=== PATIENT | female | born 1970 | race Caucasian/White ===

== ENCOUNTER 2018-11-19 11:45 | Emergency (ER) | payer MEDICAID, SELFPAY ==
--- NOTE | 2018-11-19 11:52 | W.ED.GENAD ---
Discharge Plan Disposition Patient Disposition: HOME Condition: Stable Discharge Details Chief Complaint: RespSymp Clinical Impression: URI (upper respiratory infection) Primary Care Provider: Joyce Gill ED Provider: Ildefonso Love Home Meds and New Rx's Prescriptions: New benzonatate [Tessalon Perles] 100 mg capsule 100 mg PO TID PRN (Reason: cough) Qty: 30 RF: 0 Discharge Instructions Instructions: Upper Respiratory Infection (ED) Medical Decision Making 48 yo female who denies chronic medical problems comes in with complaint of cough, subjective fevers, myalgias and sinus pressure since . Denies rahes or recent travel. On exam she is speaking in full sentences, intermittent dry cough, pain with percussion over maxillary sinuses, clear lung sounds, normal oropharynx, midline uvula, no pain over hyoid or restricted neck movements or meningismus. I suspect the patient is having a uri, could be influenza but is over 48 hours of symptoms so not antiviral candidiate. No focal lung findings and appears well systemically without fever or hypoxia here so doubt pna at this time. Has had less than 10 days of sinus pressure so do not feel abx for sinusitis indicated. ADvised symptomatic care and f/u withpcp, return precautions given Differential Diagnosis uri, influenza, sinusitis HPI General Mode of arrival: ambulatory. Date/Time Provider Initiated Documentation: 11/19/18 11:52. Limitations to Documentation: no limitations. Information obtained by: patient. History of Present Illness 48 year old F presents to the emergency department with the chief complaint of cough and sinus pressure, described as moderate, with intensity rated at 5. Patient started experiencing this day(s) (3) and it has been constant. No relieving factors improve symptom(s), No exacerbating factors reported . Patient notes no other symptoms.. Patient did receive the following treatments prior to arrival, none Related Data Home Medications Medication Instructions Recorded Confirmed benzonatate [Tessalon Perles] 100 mg PO TID PRN #30 cap 11/19/18 Previous Rx's Medication Instructions Recorded benzonatate [Tessalon Perles] 100 mg PO TID PRN #30 cap 11/19/18 Allergies Allergy/AdvReac Type Severity Reaction Status Date / Time latex Allergy Intermediate Unverified 11/19/18 11:56 adhesive Allergy Mild RASH Unverified 11/19/18 11:56 metronidazole AdvReac Intermediate Unverified 11/19/18 11:56 Review of Systems Review of Systems All systems reviewed & are unremarkable except as noted in HPI and below Constitutional Denies weakness Cardiovascular Denies chest pain Gastrointestinal Denies abdominal pain, Denies nausea and Denies vomiting Integumentary/Breasts Denies rash Neurologic Denies weakness Psychiatric Denies depression PFSH Surgical History Cholecystectomy Repair of umbilical hernia Family History Mother Diabetes Thyroid disorder Father Personal history of malignant neoplasm Sister Thyroid disorder Brother Personal history of malignant neoplasm Social History Smoking/Tobacco Use Status: Never Exam Const General: no acute distress Orientation: alert HENMT Head: normal to inspection Ears: external ears normal General nose exam: external nose normal Mouth: moist mucous membranes Eyes General: appearance normal, both eyes and all related structures Neck Neck: normal visual inspection Resp Effort & Inspection: normal respiratory effort and able to speak in complete sentences Cardio Rate: regular rate Skin General skin exam: no rashes or lesions noted Neuro General: alert and oriented x3 Extrem General: normal to inspection Psych Mental Status: mental status grossly normal
[2018-11-19 11:54] VITALS: BP 125/76; PULSE 97; RESP 16; TEMP 37; O2SAT 96
--- NOTE | 2018-11-19 12:14 | ED.GENADUL_ITS ---
Discharge Plan Disposition Patient Disposition: HOME Condition: Stable Discharge Details Chief Complaint: RespSymp Clinical Impression: URI (upper respiratory infection) Primary Care Provider: Joyce Gill ED Provider: Ildefonso Love Home Meds and New Rx's Prescriptions: New benzonatate [Tessalon Perles] 100 mg capsule 100 mg PO TID PRN (Reason: cough) Qty: 30 RF: 0 Discharge Instructions Instructions: Upper Respiratory Infection (ED) Medical Decision Making 48 yo female who denies chronic medical problems comes in with complaint of cough, subjective fevers, myalgias and sinus pressure since . Denies rahes or recent travel. On exam she is speaking in full sentences, intermittent dry cough, pain with percussion over maxillary sinuses, clear lung sounds, normal oropharynx, midline uvula, no pain over hyoid or restricted neck movements or meningismus. I suspect the patient is having a uri, could be influenza but is over 48 hours of symptoms so not antiviral candidiate. No focal lung findings and appears well systemically without fever or hypoxia here so doubt pna at this time. Has had less than 10 days of sinus pressure so do not feel abx for sinusitis indicated. ADvised symptomatic care and f/u withpcp, return precautions given Differential Diagnosis uri, influenza, sinusitis HPI General Mode of arrival: ambulatory . Date/Time Provider Initiated Documentation: 11/19/18 11:52 . Limitations to Documentation: no limitations . Information obtained by: patient . History of Present Illness 48 year old F presents to the emergency department with the chief complaint of cough and sinus pressure, described as moderate, with intensity rated at 5. Patient started experiencing this day(s) (3) and it has been constant. No relieving factors improve symptom(s), No exacerbating factors reported . Patient notes no other symptoms.. Patient did receive the following treatments prior to arrival, none Related Data Home Medications Medication Instructions Recorded Confirmed benzonatate [Tessalon Perles] 100 mg PO TID PRN #30 cap 11/19/18 Previous Rx's Medication Instructions Recorded benzonatate [Tessalon Perles] 100 mg PO TID PRN #30 cap 11/19/18 Allergies Allergy/AdvReac Type Severity Reaction Status Date / Time latex Allergy Intermediate Unverified 11/19/18 11:56 adhesive Allergy Mild RASH Unverified 11/19/18 11:56 metronidazole AdvReac Intermediate Unverified 11/19/18 11:56 Review of Systems Review of Systems All systems reviewed & are unremarkable except as noted in HPI and below Constitutional Denies weakness Cardiovascular Denies chest pain Gastrointestinal Denies abdominal pain, Denies nausea and Denies vomiting Integumentary/Breasts Denies rash Neurologic Denies weakness Psychiatric Denies depression PFSH Surgical History Cholecystectomy Repair of umbilical hernia Family History Mother Diabetes Thyroid disorder Father Personal history of malignant neoplasm Sister Thyroid disorder Brother Personal history of malignant neoplasm Social History Smoking/Tobacco Use Status: Never Exam Const General: no acute distress Orientation: alert HENMT Head: normal to inspection Ears: external ears normal General nose exam: external nose normal Mouth: moist mucous membranes Eyes General: appearance normal, both eyes and all related structures Neck Neck: normal visual inspection Resp Effort & Inspection: normal respiratory effort and able to speak in complete sentences Cardio Rate: regular rate Skin General skin exam: no rashes or lesions noted Neuro General: alert and oriented x3 Extrem General: normal to inspection Psych Mental Status: mental status grossly normal
== END 2018-11-19 12:23 | disposition home or self-care (01) ==
PROVIDERS: Emergency Provider Emergency Medicine; PCP Family Medicine
DX: J06.9 Acute upper respiratory infection, unspecified (principal)
CPT/HCPCS: 99283

== ENCOUNTER 2019-01-19 02:14 | Outpatient (CLI) | payer MEDICAID, SELFPAY ==
[2019-01-19 10:20] LABS: ALT 28 U/L (12-78); AST 23 U/L (15-37); Albumin 3.7 g/dL (3.4-5.0); Alkaline Phosphatase 72 U/L (46-116); Anion Gap 10.9 mmol/L (3-11); BUN 12 mg/dL (7-18); Bilirubin, Total 0.6 mg/dL (0.2-1.0); CO2 28.1 mmol/L (21.0-32.0); CREATININE 0.62 mg/dL (0.55-1.02); Calcium 8.8 mg/dL (8.5-10.1); Chloride 103 mmol/L (98-107); Glucose 92 mg/dL (70-100); Potassium 4.1 mmol/L (3.5-5.1); Sodium 142 mmol/L (136-145); TSH (W/Ref FT4) 2.84 uIU/mL (0.358-3.74); Total Protein 6.8 g/dL (6.4-8.2)
[2019-01-19 14:30] LABS: Cholesterol 195 mg/dL (50-200); HDL Cholesterol 69 mg/dL (40-60); LDL CHOLESTEROL 100 mg/dL (<100); Triglyceride 125 mg/dL (30-150)
== END 2019-01-19 02:34 ==
DX: I10 Essential (primary) hypertension (principal); E03.9 Hypothyroidism, unspecified; F32.9 Major depressive disorder, single episode, unspecified; R63.8 Other symptoms and signs concerning food and fluid intake; G47.00 Insomnia, unspecified; Z00.00 Encounter for general adult medical examination without abnormal findings
CPT/HCPCS: 36415; 80053; 80061; 83721; 84443

== ENCOUNTER 2019-01-24 10:38 | Outpatient (REF) | payer MEDICAID, SELFPAY ==
--- NOTE | 2019-01-24 08:45 | PAPFT_PTH ---
PATIENT: Jaki Harrell LOC: [facility] U#:[id number] AGE/SX: 48/F ROOM: RE01/24/[address]: Carlotta Hunt APRN : 1970 BED: DIS: 01/24/2019 SPEC #: [id number] RECD: 01/24/19 13:06 STATUS: [place] #: [id number] CHRISTOPHER: 01/24/19 08:[address]: Carlotta Hunt DEPT: [facility] Cytology RECD BY: Camilla Lino Tissues: 1 - CX/ENDOCX FOR PAP SMEARS Procedures: PAP THIN PREP/UVM Screening HPV DNA PROBE Comments: [id number] (CHLAMYDIA/GC)
[2019-01-25 14:59] LABS: Chlamydia Result Negative; GC Result Negative; Specimen Description SEE COMMENTS
== END 2019-01-24 10:58 ==
LOC: LBN 10:38
DX: Z12.4 Encounter for screening for malignant neoplasm of cervix (principal); Z11.51 Encounter for screening for human papillomavirus (HPV); Z11.3 Encounter for screening for infections with a predominantly sexual mode of transmission
CPT/HCPCS: 87491; 87591; 88142; 87624

== ENCOUNTER 2021-09-09 13:42 | Emergency (ER) | payer BC, SELFPAY ==
[2021-09-09] VITALS (59 sets, daily range): BP systolic 85–145; BP diastolic 43–124; PULSE 46–144; RESP 5–30; TEMP 34.1–36.5; O2SAT 73–99
--- NOTE | 2021-09-09 13:30 | RT.EKG_ITS ---
APPROVED REPORT Exam: Resting ECG Reason for Exam: unresponsive Patient Location: E HR:62 bpm ECG Measurements Heart Rate 62 AXIS VA 129 P -19 QRSd 73 QRS 50 QT 388 T -80 QTc 394 Conclusion Sinus rhythm...normal P axis, V-rate 60- 99 Repol abnrm suggests ischemia, diffuse leads...ST-T neg, ant/lat/inf. Diffuse ST depressions in anterolateral leads. No STEMI. I have reviewed and interpreted ECG and agree with software generated interpretation.
--- NOTE | 2021-09-09 13:39 | W.ED.GENAD ---
Discharge Plan Disposition Patient Disposition: TRAVIS GARNER ([facility]) Condition: Critical Discharge Details Clinical Impression: Intraventricular hemorrhage, Acute respiratory failure, Shock, Pneumonitis Primary Care Provider: Carlotta Hunt ED Provider: Shimon Reardon Home Meds and New Rx's Prescriptions: No Action fexofenadine 60 mg tablet 60 mg PO BID Qty: 60 RF: 0 Adult Probiotic 3 billion cell capsule 3,000 mmu cells PO DAILY Qty: 90 RF: 6 metronidazole [Metrogel Vaginal] 0.75 % gel 1 appful vaginal DAILY 5 Days Qty: 70 RF: 1 miconazole nitrate [Quin Antifungal] 2 % cream 1 applic TP BID Qty: 42.5 RF: 1 metronidazole 0.75 % gel 1 applic TP DAILY Qty: 45 RF: 2 Discharge Data Discharge Date/Time-TO BE ENTERED AT DEPARTURE: 09/09/21 19:35 Medical Decision Making <Anika Ramirez DO - Last Filed: 09/10/21 08:32> 51-year-old female with a history of depression and no other known reported medical history presents for a syncopal episode with head injury now reported unresponsive with concern of run of V. tach in route per EMS. 1350 -- Patient unresponsive with sonorous respirations and bradypnea on arrival. Blood pressure 119/74. Heart rate 50s. Oxygen saturation mid 90s on 2 L nasal cannula. She did have a gag reflex with tongue blade initially. She was given an additional dose of Narcan without response. EKG notes a rate of 2, sinus with deep depressions in anterior lateral leads. [facility] cardiology paged stat for concern for potential cardiac etiology considering reported syncopal episode with potential runs of V. tach and now with ischemia on EKG. Will hold on ACS treatment due to report of head injury pending CT head. Her vitals remained within normal limits but she continued with sonorous respirations and decreased gag reflex. Patient intubated with RSI. Case discussed with [facility] cardiology they are not convinced that this is a cardiac etiology. No indication for a chest treatment at this time. Recommend posterior EKG, repeat EKG and bedside echo. When patient in radiology for CT imaging, the ventilator machine crashed. Patient was then given respirations with bagging and her oxygen saturation went decreased to as low as 78% and continued bagging which had increased to 95%.. A replacement ventilator machine obtained. Patient also had an additional episode of hypoxia O2 sats 70s in radiology, diminished breath sounds left chest, ET tube pulled from 25 to 22 at the lip. Improvement in left-sided breath sounds and oxygen saturation 100%. 1515 -- After return from radiology, patient noted to have a large intraventricular hemorrhage with a potential posterior cerebellar lesion. [facility] neurosurgery paged. Discussed with patient's mother who was made aware of patient status and results. Per discussion with [facility] neurosurgery, recommend head of bed elevation greater than 30 degrees, nicardipine drip if needed to keep systolic blood pressure less than 140, Keppra 1 g IV, and keep end-tidal CO2 between 33 and 35. [facility] does not have a cerebrovascular neurosurgeon in-house at this time and cannot accept pt. [facility] not flying due to weather. Discussed with [facility] neurosurgery Dr. Solis who has accepted patient for transfer. Accepting ED physician Dr. Salmon. Dr. Solis would like 1 g/kg mannitol, 500 cc of 3% hypertonic saline, keep PCO2 at 35, keep end-tidal CO2 at 30, continue IV fluids and start vasopressors to keep systolic blood pressure between 110-140. 1630 --Case endorsed to Dr. Reardon to continue to monitor while awaiting transfer. No local ground crew is available. [facility] still not flying due to weather. [facility] ground crew is coming for transfer. COVID PCR negative. 1645 --patient's BP has continued to remain hypotensive, systolic 80s to 90s. Central line to be placed by Dr. Reardon. Medical Records Medical records reviewed: Yes I reviewed the patient's medical records. Imaging Data Radiologic Study: Radiologist's impression: CT HEAD CERVICAL SPINE WO CLINICAL HISTORY: head injury s/p syncopal episode. TECHNIQUE: Imaging Protocol: Axial computed tomography images with coronal and sagittal reformatted images were created and reviewed COMPARISON: CT CT CHEST/ABD/PEL WO from 09/09/2021 FINDINGS: BRAIN: There are no skull fractures nor fluid in the visualized paranasal sinuses. There is no fluid in the middle ear cavities. No evidence of basal skull fracture. There is acute hyperdense blood cast filling the entire ventricular system including the 4th ventricle and 3rd ventricle and lateral ventricles. There is symmetrical dilatation of the temporal horns of both lateral ventricles as well as dilatation of the 3rd ventricle to a diameter of 1.5 cm. There is no shift. The 4th ventricle and foramina of Luschka are also filled with blood. Posterior to the 4th ventricle a is area of extra-axial blood in the region of the vermis and dentate nuclei, possibly indicating presence of a mass at this level which has hemorrhage into the 4th ventricle. There is no intra-axial blood above the tentorium. CERVICAL SPINE: There is no evidence of fracture nor listhesis. No significant prevertebral soft tissue swelling. There is no significant facet joint malalignment. No significant osseous lesions evident. Patient is intubated. There are infiltrates in the lung apices. IMPRESSION: Large amount of acute appearing hyperdense intraventricular blood filling the entire ventricular system in the brain with enlargement of the ventricular system as described above (no left right shift). There is a possible culprit hemorrhagic lesion in the vermis of the cerebellum just behind the 4th ventricle. No evidence of cervical spine fracture, malalignment, nor acute compromise of the cervical spinal canal. Infiltrates noted in the visualized lung apices. Patient is intubated. Findings discussed with ER physician immediately following completion of the study. CT CHEST/ABD/PEL WO CLINICAL HISTORY: s/p syncopal episode, r/o PE. TECHNIQUE: Imaging Protocol: Axial computed tomography images with coronal and sagittal reformatted images were created and reviewed CONTRAST MATERIAL: Intravenous: none Oral: None COMPARISON: No exams were available for comparison FINDINGS: CHEST: The patient is intubated but the distal tip of the endotracheal tube recurred needs to be retracted. It is presently in the right mainstem bronchus (called to ER physician). LUNGS: There are patchy nodular and confluent infiltrates in both upper lobes sub apical regions and there is more confluent relatively symmetrical infiltrate involving the superior segments of both lower lobes. Extending down towards the basal segments of both lower lobes but without prominent involvement of the basal segments and there is relative sparing of the right middle lobe and lingular segment of the left lung. There are no pleural effusions. No obstructing findings in the trachea and mainstem bronchi. No pneumothorax. No significant bullae. MEDIASTINUM: No evidence of mediastinal hematoma. Some air is seen in the innominate vein behind the sternum which is most probably related to intravenous. Some air is also seen in both subclavian veins. No air seen within the SVC nor within the heart. No air in the IVC. No significant incidental hilar nor mediastinal adenopathy. No axillary adenopathy. CARDIAC: Heart size is normal. There is no pericardial effusion.Caliber of the thoracic aorta is within normal limits. OSSEOUS: No significant osseous lesions.No fractures.. ABDOMEN: There is no ascites. LIVER: No evidence of hepatic laceration. No Zhanna hepatic fluid . GALLBLADDER/BILIARY: Gallbladder surgically absent. CBD is not dilated. PANCREAS: No evidence of obvious pancreatic mass nor dilatation of the pancreatic duct. SPLEEN: Spleen size is normal. There is no obvious splenic laceration. There is no perisplenic fluid. ADRENALS: There are no significant adrenal masses. KIDNEYS: No evidence of renal laceration or subcapsular hematoma. No focal renal findings. No calculi. No hydronephrosis nor hydroureter. No abnormality in the nondistended urinary bladder.. ABDOMINAL AORTA: Not enlarged. No para-aortic fluid collection. No para-aortic adenopathy. LYMPH NODES: There is no retroperitoneal nor para-aortic adenopathy. ABDOMINAL WALL/GI: There is an anterior abdominal wall midline supraumbilical hernia which contains fat and no bowel loops. Hernia sac measures 4 x 4 cm. No evidence of mesenteric nor bowel wall hematoma. No obvious edematous/ischemic appearing bowel loops. PELVIS: LYMPH NODES: There is no intrapelvic nor inguinal adenopathy. GI: No evidence of appendicitis.No evidence of sigmoid diverticulitis. URINARY BLADDER: Urinary bladder is not distended. No mass nor calculi therein. REPRODUCTIVE: Uterus is retro Humberto. Upper normal size. No abnormal adnexal masses. No free fluid in the cul-de-sac. OSSEOUS: No significant osseous lesions. IMPRESSION: 1. No significant trauma sequelae, realizing limitations of a non infused CT study. 2. Extensive bilateral pulmonary infiltrates, either related to aspiration, pneumonia,/combination thereof. Recommend Covid- 19 testing. No pneumothorax. No fractures. No pleural effusions. 3. Incidentally noted is an anterior abdominal wall supraumbilical fat only containing hernia sac measuring 4 x 4 cm. No bowel loops therein. No bowel obstruction. 4. No fractures nor incidental concerning osseous lesions evident. 5. Endotracheal tube tip is in the right mainstem bronchus and needs to be repositioned. This was called by myself to the emergency room physician. CT THORACIC LUMBAR SPINE REC CLINICAL HISTORY: s/p fall, r/o fx TECHNIQUE: COMPARISON: No exams were available for comparison FINDINGS: THORACIC SPINAL COLUMN:. No fractures. No malalignment. No acute compromise the spinal canal. LUMBOSACRAL SPINAL COLUMN: No fractures. No malalignment. No acute compromise of the spinal canal. IMPRESSION: No fractures in the thoracolumbar spine. No facet joint malalignment. Lab Data Lab results reviewed: Yes I reviewed the patient's lab results. Labs: Laboratory Tests Range/Units 09/09/21 09/09/21 09/09/21 13:55 13:55 13:55 WBC (4.4-10.8) 10^3/uL 14.46 H RBC (3.93-5.22) 10^6/uL 4.97 Hgb (11.2-15.7) g/dL 14.3 Hct (36.0-46.0) % 44.1 MCV (80-95) fL 88.7 MCH (27.0-33.0) pg 28.8 MCHC (32.0-36.0) % 32.4 RDW (11.7-14.6) % 12.6 Plt Count (130-400) 10^3/uL 275 MPV (8.0-11.0) fL 10.0 Immature Gran % 0.4 Neutrophils % 51.8 Lymphocytes % 35.1 Monocytes % 7.9 Eosinophils % 4.0 Basophils % 0.8 Nucleated RBC % % 0 Absolute Neutrophils (1.2-6.7) 10^3/uL 7.49 H Absolute Lymphocytes (1.2-3.4) 10^3/uL 5.08 H Absolute Monocytes (0.1-0.8) 10^3/uL 1.14 H Absolute Eosinophils (0.0-0.7) 10^3/uL 0.58 Absolute Basophils (0.0-0.2) 10^3/uL 0.12 RBC Morphology Normal PT (9.3-11.0) sec 9.9 INR (0.9-1.1) 1.0 APTT (21.0-27.5) sec 20.7 L ABG Sample Site ABG pH (7.35-7.45) ABG pCO2 (35-45) mmHg ABG pO2 (80-105) mmHg ABG HCO3 (22-26) mmol/L ABG Total CO2 (23-27) mmol/L ABG O2 Saturation (95-98) % ABG Base Excess (-2-3) mmol/L Oxygen Liter Flow L FiO2 % Sodium (136-145) mmol/L 141 Potassium (3.5-5.1) mmol/L 2.8 L* Chloride (98-107) mmol/L 103 Carbon Dioxide (21.0-32.0) mmol/L 24.6 Anion Gap (3-11) mmol/L 13.4 H BUN (7-18) mg/dL 18 Creatinine (0.55-1.02) mg/dL 0.7 Estimated GFR/1.73 m2 (mL/min/1.73m2) >= 60.00 Glucose (74-106) mg/dL 206 H Calcium (8.5-10.1) mg/dL 8.9 Magnesium (1.8-2.4) mg/dL 2.1 Total Bilirubin (0.2-1.0) mg/dL 0.6 AST (15-37) U/L 22 ALT (14-59) U/L 25 Alkaline Phosphatase (46-116) U/L 63 Troponin I (<0.06) ng/mL < 0.05 Total Protein (6.4-8.2) g/dL 7.6 Albumin (3.4-5.0) g/dL 4.1 Serum HCG, Qual Ethyl Alcohol (<10) mg/dL COVID-19 Source Range/Units 09/09/21 09/09/21 09/09/21 13:55 13:55 15:00 WBC (4.4-10.8) 10^3/uL RBC (3.93-5.22) 10^6/uL Hgb (11.2-15.7) g/dL Hct (36.0-46.0) % MCV (80-95) fL MCH (27.0-33.0) pg MCHC (32.0-36.0) % RDW (11.7-14.6) % Plt Count (130-400) 10^3/uL MPV (8.0-11.0) fL Immature Gran % Neutrophils % Lymphocytes % Monocytes % Eosinophils % Basophils % Nucleated RBC % % Absolute Neutrophils (1.2-6.7) 10^3/uL Absolute Lymphocytes (1.2-3.4) 10^3/uL Absolute Monocytes (0.1-0.8) 10^3/uL Absolute Eosinophils (0.0-0.7) 10^3/uL Absolute Basophils (0.0-0.2) 10^3/uL RBC Morphology PT (9.3-11.0) sec INR (0.9-1.1) APTT (21.0-27.5) sec ABG Sample Site ABG pH (7.35-7.45) ABG pCO2 (35-45) mmHg ABG pO2 (80-105) mmHg ABG HCO3 (22-26) mmol/L ABG Total CO2 (23-27) mmol/L ABG O2 Saturation (95-98) % ABG Base Excess (-2-3) mmol/L Oxygen Liter Flow L FiO2 % Sodium (136-145) mmol/L Potassium (3.5-5.1) mmol/L Chloride (98-107) mmol/L Carbon Dioxide (21.0-32.0) mmol/L Anion Gap (3-11) mmol/L BUN (7-18) mg/dL Creatinine (0.55-1.02) mg/dL Estimated GFR/1.73 m2 (mL/min/1.73m2) Glucose (74-106) mg/dL Calcium (8.5-10.1) mg/dL Magnesium (1.8-2.4) mg/dL Total Bilirubin (0.2-1.0) mg/dL AST (15-37) U/L ALT (14-59) U/L Alkaline Phosphatase (46-116) U/L Troponin I (<0.06) ng/mL Total Protein (6.4-8.2) g/dL Albumin (3.4-5.0) g/dL Serum HCG, Qual Negative Ethyl Alcohol (<10) mg/dL < 3.0 COVID-19 Source Nasal/Nares Range/Units 09/09/21 16:04 WBC (4.4-10.8) 10^3/uL RBC (3.93-5.22) 10^6/uL Hgb (11.2-15.7) g/dL Hct (36.0-46.0) % MCV (80-95) fL MCH (27.0-33.0) pg MCHC (32.0-36.0) % RDW (11.7-14.6) % Plt Count (130-400) 10^3/uL MPV (8.0-11.0) fL Immature Gran % Neutrophils % Lymphocytes % Monocytes % Eosinophils % Basophils % Nucleated RBC % % Absolute Neutrophils (1.2-6.7) 10^3/uL Absolute Lymphocytes (1.2-3.4) 10^3/uL Absolute Monocytes (0.1-0.8) 10^3/uL Absolute Eosinophils (0.0-0.7) 10^3/uL Absolute Basophils (0.0-0.2) 10^3/uL RBC Morphology PT (9.3-11.0) sec INR (0.9-1.1) APTT (21.0-27.5) sec ABG Sample Site Left Radial ABG pH (7.35-7.45) 7.28 L ABG pCO2 (35-45) mmHg 50 H ABG pO2 (80-105) mmHg 85 ABG HCO3 (22-26) mmol/L 24 ABG Total CO2 (23-27) mmol/L 22 L ABG O2 Saturation (95-98) % 96 ABG Base Excess (-2-3) mmol/L -3 L Oxygen Liter Flow L CMV/VT340/R15/P5 FiO2 % 100 Sodium (136-145) mmol/L Potassium (3.5-5.1) mmol/L Chloride (98-107) mmol/L Carbon Dioxide (21.0-32.0) mmol/L Anion Gap (3-11) mmol/L BUN (7-18) mg/dL Creatinine (0.55-1.02) mg/dL Estimated GFR/1.73 m2 (mL/min/1.73m2) Glucose (74-106) mg/dL Calcium (8.5-10.1) mg/dL Magnesium (1.8-2.4) mg/dL Total Bilirubin (0.2-1.0) mg/dL AST (15-37) U/L ALT (14-59) U/L Alkaline Phosphatase (46-116) U/L Troponin I (<0.06) ng/mL Total Protein (6.4-8.2) g/dL Albumin (3.4-5.0) g/dL Serum HCG, Qual Ethyl Alcohol (<10) mg/dL COVID-19 Source ECG Data Attestation: I personally reviewed and interpreted this ECG (s) as follows: Interpretation: Rate of 62, sinus, [address] depressions in V3, V4. [address] depressions in V5 and V6. [address] depression in leads III, aVF. No acute ST elevation. [place] 129. QRS 73. QTc 394 <Shimon Reardon, DO - Last Filed: 09/09/21 21:25> Patient was signed out to me by my colleague Dr. Anika Ramirez. Please refer to her HPI, physical exam, assessment and plan. At time of signout patient had been accepted for transfer to the [facility]. Unfortunately it would take about 1 hour and 45 minutes for the transfer team to arrive. During the patient's time here she began to notably decline, patient needed pressor support. The decision was made to place a right IJ central line. Central line was placed without complication. Following this the patient required continued titration of pressors, and sedatives to find an appropriate balance for blood pressure, sedation, and appropriate state post intubation. Patient eventually maxed out on Levophed drip. Then towards the last 15 to 20 minutes of the patient's stay here in the emergency department her oxygenation status began to decline. Repeat exam performed by myself demonstrated notable crackles throughout. No deviation of the trachea, no clinical evidence of pneumothorax. Repeat portable chest x-ray shows no evidence of pneumo, but does show continued notable consolidation and interstitial edema. In spite of being maxed out on Levophed, her pressure remained somewhat low. With the help of laxatives from respiratory therapy, we continued to maximize PEEP, we had to diminished tidal volumes secondary to this, and FiO2 remained at 100% for administrated oxygen. Despite this the patient still did not have significant improvement of her oxygenation status in spite of multiple suctioning attempts. There is a small amount of pink frothy noted on one attempt to suction. Eventually through management to the I/E ratio as we were able to get the patient's oxygen saturations up to the high 80s, low 90s. However with the patient's notable poor prognostic outlook, we did contact [facility] discussed the case with neurosurgery team. Out of concern that the patient may not survive the transfer, I did have the long and very radha conversation with the family regarding the options of keeping the patient here to be close to family during her last moments, or the potential attempt for transfer with a high risk of continued rapid demise, and I also made clear that there was a low likelihood that the patient would be able to recover to anywhere near her previous neurologic state. Understanding this, and weighing the risks and benefits, family felt that it was best to pursue all options at this time, and to continue to request transfer. Patient will be transferred via the [facility] critical care team. I have extensively reviewed the treatment plan with the patient. I have addressed all patient concerns at this time. I have also discussed the plan with the admitting physician and they agree with the current assessment and plan and have agreed to assume responsibility for the patient. All parties demonstrate verbal understanding and agreement with our assessment and plan at this time. The documentation in this chart was dictated using [employer] dictation software. Please excuse any dictation errors. FINDINGS: Tubes, catheters and devices: The endotracheal tube does not appear significantly changed in position. There has been interval placement of a gastric tube with the tip below the diaphragm and out of the field of view of this radiograph. There has been interval placement of a right IJ central venous catheter with the tip at the level of the SVC/RA junction. Lungs: Extensive airspace consolidation is again noted and appears unchanged. Pleural spaces: Unremarkable. No pleural effusion. No pneumothorax. Heart/Mediastinum: Unremarkable. No cardiomegaly. Bones/joints: Unremarkable. IMPRESSION: Interval placement of a central venous catheter and a gastric tube. Thank you for allowing us to participate in the care of your patient. Dictated and Authenticated by: Brayan Lynn MD 09/09/2021 5:35 PM Eastern Time ([place] & [place]) HPI <Anika Ramirez DO - Last Filed: 09/10/21 08:32> General Mode of arrival: EMS. Date/Time Provider Initiated Documentation: 09/09/21 13:58. Limitations to Documentation: altered mental status. Information obtained by: EMS. HPI Narrative: Patient is a 51-year-old female with a history of depression and no other known past medical history presents from her workplace for a reported syncopal episode with head injury now noted to be unresponsive. 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 They stated she initially was confused but upon their arrival was unresponsive but breathing. She had to be lifted onto a stretcher. EMS notes that initially her rhythm appears sinus but then she appeared to have a run of V. tach. She was given a dose of Narcan without response. There is no report of other trauma been head injury. There is no known reported drug use. Related Data Home Medications Medication Instructions Recorded Confirmed lactobacillus combination no.8 3 3,000 mmu cells PO DAILY #90 cap 03/21/19 03/21/19 billion cell capsule miconazole nitrate 2 % topical 1 applic TP BID #42.5 gm 09/28/19 cream fexofenadine 60 mg tablet 60 mg PO BID #60 tab 02/02/20 02/02/20 metronidazole 0.75 % topical gel 1 applic TP DAILY #45 gm 12/23/20 metronidazole 0.75 % vaginal gel 1 appful VAGINAL DAILY 5 Days #70 g 04/13/21 04/13/21 Previous Rx's Medication Instructions Recorded lactobacillus combination no.8 3 3,000 mmu cells PO DAILY #90 cap 03/21/19 billion cell capsule miconazole nitrate 2 % topical 1 applic TP BID #42.5 gm 09/28/19 cream fexofenadine 60 mg tablet 60 mg PO BID #60 tab 02/02/20 metronidazole 0.75 % topical gel 1 applic TP DAILY #45 gm 12/23/20 metronidazole 0.75 % vaginal gel 1 appful VAGINAL DAILY 5 Days #70 g 04/13/21 Allergies Allergy/AdvReac Type Severity Reaction Status Date / Time latex Allergy Intermediate Verified 04/13/21 14:54 adhesive Allergy Mild RASH Verified 04/13/21 14:54 metronidazole AdvReac Mild could not Verified 04/13/21 14:54 swallow General JULES: 3 Review of Systems <Anika Ramirez DO - Last Filed: 09/10/21 08:32> Unobtainable due to mental status [facility] <Anika Ramirez DO - Last Filed: 09/10/21 08:32> Medical History (Updated 09/09/21 @ 21:24 by Shimon Reardon DO) Acne Bacterial vaginitis Depression Increased body mass index (BMI) Perineal rash Possible exposure to STD Urinary, incontinence, stress female Surgical History Cholecystectomy Repair of umbilical hernia Family History Mother Diabetes Thyroid disorder Father , 43 Personal history of malignant neoplasm Sister Thyroid disorder Brother , 39 Personal history of malignant neoplasm Maternal Grandfather No problems noted. Paternal Grandfather No problems noted. Maternal Grandmother No problems noted. Paternal Grandmother No problems noted. Brother No problems noted. Son No problems noted. Daughter No problems noted. Social History Smoking/Tobacco Use Status: Never Smoking risk assessment performed?: Yes Alcohol Intake: current Alcohol Intake frequency: a few times a week Drug use: Never Caregiver/Support person: No Household members: family and children Housing: apartment Pets and animals: Yes Pets and animals: cat(s) Sexually active: No Do you think of yourself as: straight/heterosexual Current gender identity: female What is your relationship status?: Panel score (0-1 are the most socially isolated patients): 0 What type of physical activity do you participate in: none Delfina/Oriental Orthodox: Yarsanism Special delfina needs: No Seatbelt use: always Drive intox or ride w/intox motor vehicle escort driver: No Do you feel safe in your relationship?: Yes Exam <Anika Ramirez DO - Last Filed: 09/10/21 08:32> Const Nutritional Appearance: obese centrally obese Orientation: obtunded HENMT Head: normal to inspection Ears: TM's normal bilaterally Mouth: oral mucosae normal Eyes General: appearance normal, both eyes and all related structures Eyelids: eyelids normal Pupils: pupil size bilaterally 2 Neck Neck: normal visual inspection Lymphatic: no lymphadenopathy noted Chest Chest: normal inspection of the chest Resp Effort & Inspection: decreased respiratory effort (sonorous respirations) Auscultation: clear to auscultation bilaterally Cardio Rate: bradycardic Rhythm: regular rhythm GI Inspection: normal to inspection, no abdominal wall ecchymosis and obesity Palpation: soft, not firm, no guarding, no hepatosplenomegaly, no masses and nontender Auscultation: hypoactive bowel sounds Skin General skin exam: no rashes or lesions noted Neuro General: patient obtunded Extrem General: normal to inspection Psych Appearance: grossly normal Procedures <Anika Ramirez DO - Last Filed: 09/10/21 08:32> Intubation Time out performed: Yes sedative: Etomidate Mg Given: 20 paralytic: Succinylcholine Mg Given: 80 Laryngoscope: other (glidescope) ET Tube Size: 7.5 Tube Secured Depth (cm): 25 Tube Secured Location: lips Tube Placement Confirmation: visualized tube passing through cords and equal breath sounds bilaterally Patient Tolerated Procedure: other (O2 saturations decreased to the 60s just prior to RSI, pt bagged with minimal improvement, NC preoxygenation; sats increased to near 100% after intubation) Intubation Complications: none <Shimon Reardon DO - Last Filed: 09/09/21 21:25> Central Line Placement Right IJ: Time Out Performed: Yes Patient Placed on Monitor/Pulse Ox: Yes MD Prep: mask, gown and gloves Central Line Prep: Chlorhexidine scrub Ultrasound Used for Placement: Yes Central Line Lumen Inserted: triple Post Procedure: good blood return, all ports aspirated, flushed, capped and sutured in place with 3-0 nylon Post Procedure X-Ray: tip of catheter in good position Patient Tolerated Procedure: well Complications: none Critical Care Time <Anika Ramirez DO - Last Filed: 09/10/21 08:32> Critical Care Time Critical Care Time: Yes Total Critical Care Time: 120 Attestation: I spent 120 minutes of critical care time with this patient. This does not include time spent on separately reported billable procedures. <Shimon Reardon, DO - Last Filed: 09/09/21 21:25> Critical Care Time Critical Care Time: Yes Total Critical Care Time: 100 Attestation: Upon my evaluation, this patient had a high probability of imminent or life-threatening deterioration, which required my direct attention, intervention, and personal management. I have personally provided 100 minutes of critical care time exclusive of time spent on separately billable procedures. Time includes review of laboratory data, radiology results, discussion with consultants, and monitoring for potential decompensation. Interventions were performed as documented. Sign Out <Anika Ramirez DO - Last Filed: 09/10/21 08:32> Sign Out Data: Sign Out Comment: Patient accepted for transfer to [facility]. Ground crew from [facility] will be transporting patient. Continue to monitor to keep systolic BP between 110 and 140. Keep end-tidal CO2 at 30. Keep head of bed greater than 30 degrees. Last updated by Anika Ramirez DO at 09/09/21 16:51
--- NOTE | 2021-09-09 14:00 | DI.CT_ITS ---
Exam(s) CT HEAD CERVICAL SPINE WO EXAM: CT HEAD CERVICAL SPINE WO CLINICAL HISTORY: head injury s/p syncopal episode. TECHNIQUE: Imaging Protocol: Axial computed tomography images with coronal and sagittal reformatted images were created and reviewed COMPARISON: CT CT CHEST/ABD/PEL WO from 09/09/2021 FINDINGS: BRAIN: There are no skull fractures nor fluid in the visualized paranasal sinuses. There is no fluid in the middle ear cavities. No evidence of basal skull fracture. There is acute hyperdense blood cast filling the entire ventricular system including the 4th ventricl e and 3rd ventricle and lateral ventricles. There is symmetrical dilatation of the temporal horns of both lateral ventricles as well as dilatation of the 3rd ventricle to a diameter of 1.5 cm. There i s no shift. The 4th ventricle and foramina of Luschka are also filled with blood. Posterior to the 4th ventricle a is area of extra-axial blood in the region of the vermis and dentate nuclei, possibly indicating presence of a mass at this level which has hemorrhage into the 4th ventricle. There is no intra-axial blood above the tentorium. CERVICAL SPINE: There is no evidence of fracture nor listhesis. No significant prevertebral soft tissue swelling. There is no significant facet joint malalignment. No significant osseous lesions evident. Patient is intubated. There are infiltrates in the lung apices. IMPRESSION: Large amount of acute appearing hyperdense intraventricular blood filling the entire ventricular syst em in the brain with enlargement of the ventricular system as described above (no left right shift). There is a possible culprit hemorrhagic lesion in the vermis of the cerebellum just behind the 4th v entricle. No evidence of cervical spine fracture, malalignment, nor acute compromise of the cervical spinal can al. Infiltrates noted in the visualized lung apices. Patient is intubated. Findings discussed with ER physician immediately following completion of the study. RADIATION DOSE DELIVERED: 1,239.04mGy.cm Total DLP DATA REPOSITORY: All CT scans at this facility are submitted to the National Radiology Data Registry (NRDR) Dose Index Registry (DIR) with the [employer] (A[employer]). RADIATION OPTIMIZATION: All CT scans at this facility use at least one of these dose optimization te chniques: automated exposure control; mA and/or kV adjustment per patient size (includes targeted exa ms where dose is matched to clinical indication); or iterative reconstruction.
[2021-09-09] MEDS: Succinylcholine 200 MG/10 ML VIAL 80 MG IVP (14:04)
[2021-09-09] MEDS: Etomidate 20 MG/10 ML VIAL IVP (14:04)
[2021-09-09 14:08] LABS: Abs Immature Grans 0.06 10^3/uL (0.0-0.06); Absolute Basophil Count 0.12 10^3/uL (0.0-0.2); Absolute Eosinophil Count 0.58 10^3/uL (0.0-0.7); Absolute Monocyte Count 1.14 10^3/uL (0.1-0.8); Absolute Neutrophil Count 7.49 10^3/uL (1.2-6.7); Basophils % 0.8; HCT 44.1 % (36.0-46.0); HGB 14.3 g/dL (11.2-15.7); Immature Grans % 0.4; Lymphocytes % 35.1; MCH 28.8 pg (27.0-33.0); MCHC 32.4 % (32.0-36.0); MCV 88.7 fL (80-95); Monocytes % 7.9; Neutrophils % 51.8; Nucleated RBC 0 %; Platelet Count 275 10^3/uL (130-400); RBC 4.97 10^6/uL (3.93-5.22); RDW 12.6 % (11.7-14.6); RDW-SD 41.1 fL; WBC 14.46 10^3/uL (4.4-10.8)
[2021-09-09 14:09] LABS: Absolute Lymphocyte Count 5.08 10^3/uL (1.2-3.4)
[2021-09-09] MEDS: Propofol 200 MG/20 ML VIAL 50 MG IVP (14:09)
--- NOTE | 2021-09-09 14:11 | DI.CT_ITS ---
Exam(s) CT THORACIC LUMBAR SPINE REC EXAM: CT THORACIC LUMBAR SPINE REC CLINICAL HISTORY: s/p fall, r/o fx TECHNIQUE: COMPARISON: No exams were available for comparison FINDINGS: THORACIC SPINAL COLUMN:. No fractures. No malalignment. No acute compromise the spinal canal. LUMBOSACRAL SPINAL COLUMN: No fractures. No malalignment. No acute compromise of the spinal canal. IMPRESSION: No fractures in the thoracolumbar spine. No facet joint malalignment.
--- NOTE | 2021-09-09 14:11 | DI.CT_ITS ---
Exam(s) CT CHEST/ABD/PEL WO EXAM: CT CHEST/ABD/PEL WO CLINICAL HISTORY: s/p syncopal episode, r/o PE. TECHNIQUE: Imaging Protocol: Axial computed tomography images with coronal and sagittal reformatted images were created and reviewed CONTRAST MATERIAL: Intravenous: none Oral: None COMPARISON: No exams were available for comparison FINDINGS: CHEST: The patient is intubated but the distal tip of the endotracheal tube recurred needs to be retracted. It is presently in the right mainstem bronchus (called to ER physician). LUNGS: There are patchy nodular and confluent infiltrates in both upper lobes sub apical regions and there is more confluent relatively symmetrical infiltrate involving the superior segments of both low er lobes. Extending down towards the basal segments of both lower lobes but without prominent involv ement of the basal segments and there is relative sparing of the right middle lobe and lingular segme nt of the left lung. There are no pleural effusions. No obstructing findings in the trachea and andres nstem bronchi. No pneumothorax. No significant bullae. MEDIASTINUM: No evidence of mediastinal hematoma. Some air is seen in the innominate vein behind the sternum which is most probably related to intravenous. Some air is also seen in both subclavian vei ns. No air seen within the SVC nor within the heart. No air in the IVC. No significant incidental hilar nor mediastinal adenopathy. No axillary adenopathy. CARDIAC: Heart size is normal. There is no pericardial effusion.Caliber of the thoracic aorta is wit hin normal limits. OSSEOUS: No significant osseous lesions.No fractures.. ABDOMEN: There is no ascites. LIVER: No evidence of hepatic laceration. No Zhanna hepatic fluid . GALLBLADDER/BILIARY: Gallbladder surgically absent. CBD is not dilated. PANCREAS: No evidence of obvious pancreatic mass nor dilatation of the pancreatic duct. SPLEEN: Spleen size is normal. There is no obvious splenic laceration. There is no perisplenic flui d. ADRENALS: There are no significant adrenal masses. KIDNEYS: No evidence of renal laceration or subcapsular hematoma. No focal renal findings. No calcu li. No hydronephrosis nor hydroureter. No abnormality in the nondistended urinary bladder.. ABDOMINAL AORTA: Not enlarged. No para-aortic fluid collection. No para-aortic adenopathy. LYMPH NODES: There is no retroperitoneal nor para-aortic adenopathy. ABDOMINAL WALL/GI: There is an anterior abdominal wall midline supraumbilical hernia which contains f at and no bowel loops. Hernia sac measures 4 x 4 cm. No evidence of mesenteric nor bowel wall hematoma. No obvious edematous/ischemic appearing bowel loo ps. PELVIS: LYMPH NODES: There is no intrapelvic nor inguinal adenopathy. GI: No evidence of appendicitis.No evidence of sigmoid diverticulitis. URINARY BLADDER: Urinary bladder is not distended. No mass nor calculi therein. REPRODUCTIVE: Uterus is retro Humberto. Upper normal size. No abnormal adnexal masses. No free fluid in the cul-de-sac. OSSEOUS: No significant osseous lesions. IMPRESSION: 1. No significant trauma sequelae, realizing limitations of a non infused CT study. 2. Extensive bilateral pulmonary infiltrates, either related to aspiration, pneumonia,/combination th ereof. Recommend Covid- 19 testing. No pneumothorax. No fractures. No pleural effusions. 3. Incidentally noted is an anterior abdominal wall supraumbilical fat only containing hernia sac jairo suring 4 x 4 cm. No bowel loops therein. No bowel obstruction. 4. No fractures nor incidental concerning osseous lesions evident. 5. Endotracheal tube tip is in the right mainstem bronchus and needs to be repositioned. This was c alled by myself to the emergency room physician. RADIATION DOSE DELIVERED: 1388.14 mGy.cm Total DLP DATA REPOSITORY: All CT scans at this facility are submitted to the National Radiology Data Registry (NRDR) Dose Index Registry (DIR) with the [employer] (ACR). RADIATION OPTIMIZATION: All CT scans at this facility use at least one of these dose optimization te chniques: automated exposure control; mA and/or kV adjustment per patient size (includes targeted exa ms where dose is matched to clinical indication); or iterative reconstruction.
[2021-09-09] MEDS: PROPOFOL 500 MG/50 ML BTL 25.26 MG IVPB (14:13)
[2021-09-09] MEDS: Normal Saline 1,000 ML 1000 ML IV (14:15)
[2021-09-09 14:26] LABS: Diff Comment Diff Reviewed; PTT Activated 20.7 sec (21.0-27.5); Prothrombin Time 9.9 sec (9.3-11.0); RBC Morphology Normal
[2021-09-09 14:27] LABS: ALT 25 U/L (14-59); AST 22 U/L (15-37); Albumin 4.1 g/dL (3.4-5.0); Alkaline Phosphatase 63 U/L (46-116); Anion Gap 13.4 mmol/L (3-11); BUN 18 mg/dL (7-18); Bilirubin, Total 0.6 mg/dL (0.2-1.0); CO2 24.6 mmol/L (21.0-32.0); CREATININE 0.7 mg/dL (0.55-1.02); Calcium 8.9 mg/dL (8.5-10.1); Chloride 103 mmol/L (98-107); Glucose 206 mg/dL (74-106); Magnesium 2.1 mg/dL (1.8-2.4); Sodium 141 mmol/L (136-145); Total Protein 7.6 g/dL (6.4-8.2)
[2021-09-09 14:34] LABS: Potassium 2.8 mmol/L (3.5-5.1); Troponin I < 0.05 ng/mL (<0.06)
[2021-09-09 14:45] LABS: HCG Qual (Serum) Negative
[2021-09-09 14:57] LABS: ETHANOL BLOOD < 3.0 mg/dL (<10)
[2021-09-09 15:08] LABS: Source Nasal/Nares
--- NOTE | 2021-09-09 15:15 | DI.RAD_ITS ---
Exam(s) XR PORTABLE CHEST AP EXAM: XR PORTABLE CHEST AP CLINICAL HISTORY: assess ETT. TECHNIQUE: 2D digital imaging was performed. COMPARISON: No exams were available for comparison FINDINGS: Patient is intubated. Distal tip of the endotracheal tube is in good position above the guerrero at th e clavicular level. The mediastinum is not widened. There are cardiac pads in place. Heart size is normal. Symmetrical bat wing-type infiltrates are noted in the upper lobes, superior segment lower lobes and extending down towards the basal segments of both lower lobes, as seen on chest CT scan earlier same date. There are no obvious pleural effusions. There is no pneumothorax. No fractures evident. IMPRESSION: DATA REPOSITORY: RADIATION DOSE DELIVERED: All CT scans at this facility use at least one of these dose optimization techniques: automated exposure control; mA and/or kV adjustment per patient size (includes targeted e xams where dose is matched to clinical indication); or iterative reconstruction.
[2021-09-09] MEDS: levETIRAcetam 1,000 MG in Normal Saline 100 ML 400 MG IVPB (15:47)
[2021-09-09 16:05] LABS: BE -3 mmol/L (-2-3); HCO3 24 mmol/L (22-26); pCO2 50 mmHg (35-45); pH 7.28 (7.35-7.45); pO2 85 mmHg (80-105); sO2 96 % (95-98); tCO2 22 mmol/L (23-27)
[2021-09-09] MEDS: POTASSIUM CHLORIDE 20 MEQ/100 ML BAG 50 MEQ IVPB (16:06)
[2021-09-09 16:07] LABS: Site Left Radial
[2021-09-09 16:08] LABS: FIO2 100 %
[2021-09-09 16:12] LABS: Bilirubin Negative (Negative); Blood Negative (Negative); Clarity Clear (Clear); Glucose Negative (Negative); Ketones 15 mg/dL (Negative); Leukocyte Esterase Negative (Negative); Nitrite Negative (Negative); Specific Gravity >= 1.030 (1.005-1.025); Urobilinogen 0.2 EU/dL (Up TO 0.2); pH 5.5 (5-8)
--- NOTE | 2021-09-09 16:14 | DI.VRAD_ITS ---
PROCEDURE INFORMATION: Exam: XR Chest Exam date and time: 09/09/2021 3:16 PM Age: 51 years old Clinical indication: Other: Assess ett TECHNIQUE: Imaging protocol: XR of the chest. Views: 1 view. COMPARISON: CT CHEST/ABD/PEL WO 09/09/2021 3:05 PM FINDINGS: Tubes, catheters and devices: An endotracheal tube is present with the tip approximately 6 cm superior to the guerrero. EKG leads overlie the chest. Lungs: Extensive confluent airspace consolidation is noted with a parahilar distribution and also predominantly involving the upper lobes. Pleural spaces: Unremarkable. No pleural effusion. No pneumothorax. Heart/Mediastinum: Unremarkable. No cardiomegaly. Bones/joints: Unremarkable. IMPRESSION: 1. Extensive bilateral airspace consolidation suspicious for pneumonia. Follow-up until clear is recommended. 2. An endotracheal tube is present with the tip approximately 6 cm above the guerrero. Dictated and Authenticated by: Brayan Lynn MD. Ordering:DAVION Donaldson MD
[2021-09-09 16:18] LABS: COVID-19 PCR Negative (Negative)
[2021-09-09 16:26] LABS: Salicylate < 2.8 mg/dL (<2.8)
[2021-09-09 16:29] LABS: Acetaminophen < 2 ug/mL (10-30)
[2021-09-09 16:31] LABS: Bacteria Negative HPF (Negative); C & S Indicated? No; Casts Negative LPF (Negative); Crystals Negative HPF (Negative); Epithelial Cells Negative HPF (Negative); Mucus Negative (Negative); Other Cells Negative (Negative); RBC 0-2 HPF (0-2); WBC 0-2 HPF (0-5)
[2021-09-09] MEDS: Normal Saline 1,000 ML 125 ML IV (16:45)
[2021-09-09] MEDS: SODIUM CHLORIDE 3% 500 ML 30 ML IV (16:45)
[2021-09-09 16:51] LABS: *AMPHETAMINES SCREEN URINE Negative (Negative); *BARBITURATES SCREEN URINE Negative (Negative); *BENZODIAZEPINES SCREEN URINE Negative (Negative); Cannabinoids THC Negative (Negative); Cocaine Screen,Urine Negative (Negative); METHADONE URINE SCREEN Negative (Negative); OPIATES URINE SCREEN Negative (Negative)
--- NOTE | 2021-09-09 16:51 | DI.RAD_ITS ---
Exam(s) XR PORTABLE CHEST AP POST LINE EXAM: XR PORTABLE CHEST AP POST LINE CLINICAL HISTORY: post line placement. TECHNIQUE: 2D digital imaging was performed. COMPARISON: Chest x-ray earlier same date FINDINGS: Patient remains intubated. Distal tip of the endotracheal tube is in satisfactory position above the guerrero. The mediastinum is not widened. Distal tip of the newly placed right jugular central line is in the upper right atrium. There is als o an NG tube in the stomach. Heart size is unchanged. Cardiac pad is noted. Again noted is extensive bilateral batwing-type infi ltrates involving upper lobes and lower lobes, but not associated with obvious pleural effusions nor obvious pneumothorax on this supine portable view. No rib fractures identified. IMPRESSION: No radiographic improvement in the lung crouch when compared to earlier same date. ET tube, NG tube, and central line with positions as above. No pneumothorax. DATA REPOSITORY: RADIATION DOSE DELIVERED: All CT scans at this facility use at least one of these dose optimization techniques: automated exposure control; mA and/or kV adjustment per patient size (includes targeted e xams where dose is matched to clinical indication); or iterative reconstruction.
[2021-09-09 16:53] LABS: Tricyclic Antidepressants Positive (Negative)
[2021-09-09] MEDS: MIDAZOLAM 50 MG in Normal Saline 90 ML 16.84 MG IV (17:36)
--- NOTE | 2021-09-09 17:36 | DI.VRAD_ITS ---
PROCEDURE INFORMATION: Exam: XR Chest Exam date and time: 09/09/2021 4:55 PM Age: 51 years old Clinical indication: Device placement TECHNIQUE: Imaging protocol: XR of the chest. Views: 1 view. COMPARISON: CR XR PORTABLE CHEST AP 09/09/2021 3:32 PM FINDINGS: Tubes, catheters and devices: The endotracheal tube does not appear significantly changed in position. There has been interval placement of a gastric tube with the tip below the diaphragm and out of the field of view of this radiograph. There has been interval placement of a right IJ central venous catheter with the tip at the level of the SVC/RA junction. Lungs: Extensive airspace consolidation is again noted and appears unchanged. Pleural spaces: Unremarkable. No pleural effusion. No pneumothorax. Heart/Mediastinum: Unremarkable. No cardiomegaly. Bones/joints: Unremarkable. IMPRESSION: Interval placement of a central venous catheter and a gastric tube. Dictated and Authenticated by: Brayan Lynn MD. Ordering:DAVION Donaldson MD
[2021-09-09] MEDS: AMPICILLIN/SULBACTAM 3 GM in Normal Saline 100 ML IVPB (18:06)
[2021-09-09] MEDS: PROPOFOL 1,000 MG/100 ML BTL 25.3 MG (18:25)
--- NOTE | 2021-09-09 18:53 | NUR.NOTE ---
Patient repositioned to left side. Breathing over vent RR 28. Dr. Reardon in room to talk with family about patient condition. O2 sats dropping now 77% on 100% oxygen via vent. Versed drip increased to 0.04mg/kg/hr.
--- NOTE | 2021-09-09 19:22 | DI.RAD_ITS ---
Exam(s) XR PORTABLE CHEST AP EXAM: XR PORTABLE CHEST AP CLINICAL HISTORY: hypoxic. TECHNIQUE: 2D digital imaging was performed. COMPARISON: CR,XR XR PORTABLE CHEST AP POST LINE from 09/09/2021 FINDINGS: Suboptimal portable supine view. The distal tip of the endotracheal tube is not included in the fiel d of view of this study. Distal tip of the right jugular central line is in the upper RA. NG tube i s in the stomach. Extensive bilateral lung infiltrates are unchanged.. IMPRESSION: Unchanged pulmonary infiltrates. Distal tip of the right jugular central line is in the upper right atrium. DATA REPOSITORY: RADIATION DOSE DELIVERED: All CT scans at this facility use at least one of these dose optimization techniques: automated exposure control; mA and/or kV adjustment per patient size (includes targeted e xams where dose is matched to clinical indication); or iterative reconstruction.
== END 2021-09-09 19:35 | disposition short-term general hospital (02) ==
PROVIDERS: Physician Assistant; Emergency Provider Student in an Organized Health Care Education/Training Program
DX: I61.5 Nontraumatic intracerebral hemorrhage, intraventricular (principal); J96.01 Acute respiratory failure with hypoxia; R57.9 Shock, unspecified; J18.9 Pneumonia, unspecified organism; R55 Syncope and collapse; I95.9 Hypotension, unspecified
CPT/HCPCS: 31500; 36416; 36556; 51702; 71045; 71250; 80053; 80307; 82805; 82962; 87635; 93005; 96360; 96361; 96365; 96366; 96367; 96368; 96376; 99291; 99292; 36600; 70450; 72125; 74176; 80320; 80329; 81003; 81015; 83735; 84484; 84703; 85025; 85610; 85730; 93010; J0295; J1953; J2310; J2704; J3480; J3490